=== PATIENT | female | born 2000 | race African-American/Black ===

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

== ENCOUNTER 2021-06-06 21:49 | Emergency (ER) | payer OTHER ==
[2021-06-06 22:03] VITALS: BP 99/68; PULSE 87; TEMP 98; BMI 47.5
[2021-06-06 23:36] LABS: BASO % 0.5 % (0-2.0); EOS % 1.2 % (0-4.5); HEMATOCRIT 34.6 % (32.4-45.2); HEMOGLOBIN 11.4 GM/dL (10.7-15.3); MCH 25.5 pg (25.7-33.7); MCHC 33.1 g/dl (32.0-36.0); MEAN CELL VOLUME 77.2 fl (80-96); MEAN PLT VOLUME 8.3 fl (7.5-11.1); MONO % 6.3 % (3.8-10.2); PLATELET COUNT 256 10^3/uL (134-434); RBC 4.48 M/mm3 (3.60-5.2); RDW 15.6 % (11.6-15.6); WHITE BLOOD COUNT 5.2 K/mm3 (4.0-10.0)
[2021-06-06 23:57] LABS: BLOOD UREA NITROGEN 12.1 mg/dL (7-18)
[2021-06-07] LABS: CREATININE 0.9 mg/dL (0.55-1.3)
[2021-06-07 00:02] LABS: BILIRUBIN,TOTAL 0.2 mg/dL (0.2-1); TOT PROT 7.2 g/dl (6.4-8.2)
[2021-06-07 00:43] LABS: EPI CELLS >36 /uL (0-25.1); HYALINE CASTS 1 /uL (0-3.1); URINE APPEARANCE CLEAR; URINE BACTERIA 729 /uL (0-1359); URINE BILIRUBIN NEGATIVE (NEGATIVE); URINE COLOR YELLOW; URINE GLUCOSE (UA) NEGATIVE (NEGATIVE); URINE KETONE TRACE (NEGATIVE); URINE LEUK ESTERASE TRACE (NEGATIVE); URINE NITRITE NEGATIVE (NEGATIVE); URINE PROTEIN TRACE (NEGATIVE); URINE RBC 467 /uL (0-23.9); URINE WBC 46 /uL (0-25.8)
[2021-06-07 00:51] LABS: HCG,QUALITATIVE URINE Negative
== END 2021-06-07 03:01 | disposition home or self-care (01) ==
LOC: JER 21:49
DX: N93.9 Abnormal uterine and vaginal bleeding, unspecified (principal)
CPT/HCPCS: 36415; 76830-TC; 80053; 81003; 84703; 85025; 87086; 87491; 87591; 99284-25

== ENCOUNTER 2023-05-24 02:24 | Emergency (ER) | payer OTHER ==
[2023-05-24 02:30] VITALS: BMI 47.8
[2023-05-24] MEDS ORDERED: SODIUM CHLORIDE 0.9% 500 ML INFUS.BAG IV ONE (04:11)
[2023-05-24] MEDS ORDERED: ONDANSETRON 4 MG/2 ML VIAL IVPUSH ONE (04:16)
[2023-05-24] MEDS ORDERED: ONDANSETRON 4 MG/2 ML VIAL ONE (04:28)
[2023-05-24 04:55] LABS: BASO % 0.6 % (0-2.0); EOS % 0.3 % (0-4.5); HEMOGLOBIN 12.5 GM/dL (10.7-15.3); LYMPH % 25.1 % (8-40); MCHC 32.8 g/dl (32.0-36.0); MEAN CELL VOLUME 76.2 fl (80-96); MEAN PLT VOLUME 8.7 fl (7.5-11.1); MONO % 6.4 % (3.8-10.2); NEUT % 67.6 % (42.8-82.8); PLATELET COUNT 297 10^3/uL (134-434); RBC 4.98 M/mm3 (3.60-5.2); RDW 18.1 % (11.6-15.6); WHITE BLOOD COUNT 5.8 K/mm3 (4.0-10.0)
[2023-05-24 04:57] LABS: EPI CELLS >36 /uL (0-25.1); HYALINE CASTS 7 /uL (0-3.1); PH,URINE 6.5 (5.0-8.0); URINE APPEARANCE TURBID; URINE BACTERIA >9,000 /uL (0-1359); URINE BILIRUBIN 2+ (NEGATIVE); URINE COLOR DK YELLOW; URINE GLUCOSE (UA) NEGATIVE (NEGATIVE); URINE KETONE 4+ (NEGATIVE); URINE LEUK ESTERASE 3+ (NEGATIVE); URINE NITRITE POSITIVE (NEGATIVE); URINE PROTEIN 2+ (NEGATIVE); URINE WBC 1459 /uL (0-25.8)
[2023-05-24] MEDS ORDERED: CEFTRIAXONE 1 GM in DEXTROSE 5%-WATER - 50 ML IVPB ONE (05:01)
[2023-05-24] MEDS ORDERED: SODIUM CHLORIDE 1,000 ML IV STA (05:06)
[2023-05-24 05:12] LABS: POTASSIUM 4.1 mmol/L (3.5-5.1)
[2023-05-24 05:13] LABS: CALCIUM 9.3 mg/dL (8.5-10.1)
[2023-05-24 05:14] LABS: ALBUMIN 3.4 g/dl (3.4-5.0)
[2023-05-24 05:17] LABS: CREATININE 0.7 mg/dL (0.55-1.3)
[2023-05-24 05:19] LABS: BILIRUBIN,TOTAL 0.8 mg/dL (0.2-1); TOT PROT 7.6 g/dl (6.4-8.2)
[2023-05-24 05:26] VITALS: BP 97/62; PULSE 76; RESP 18; TEMP 97.9
[2023-05-24] MEDS ORDERED: CEFTRIAXONE 1 GM/50 ML BAG ONE (05:29)
[2023-05-24 06:02] LABS: URINE CRYSTALS MODERATE /hpf
== END 2023-05-24 06:52 | disposition home or self-care (01) ==
LOC: JER 02:24
PROC: 3E03329 Introduction of Other Anti-infective into Peripheral Vein, Percutaneous Approach (ICD-10-PCS; principal; 2023-05-24)
PROC: 3E033GC Introduction of Other Therapeutic Substance into Peripheral Vein, Percutaneous Approach (ICD-10-PCS; 2023-05-24)
PROC: 3E0337Z Introduction of Electrolytic and Water Balance Substance into Peripheral Vein, Percutaneous Approach (ICD-10-PCS; 2023-05-24)
DX: O21.0 Mild hyperemesis gravidarum (principal); O26.891 Other specified pregnancy related conditions, first trimester; R11.0 Nausea; R10.9 Unspecified abdominal pain; R30.0 Dysuria; Z3A.00 Weeks of gestation of pregnancy not specified
CPT/HCPCS: 36415; 80053; 81003; 84702; 85025; 87086; 93005; 93010; 99284-25

== ENCOUNTER 2023-06-05 04:11 | Emergency (ER) | payer OTHER ==
[2023-06-05 04:16] VITALS: TEMP 97.5; BMI 48.6
[2023-06-05] MEDS ORDERED: ACETAMINOPHEN 1000 MG/100 ML BAG IVPB ONE (04:51)
[2023-06-05] MEDS ORDERED: ACETAMINOPHEN INJECTION 100 ML IVPB ONE (05:08)
[2023-06-05 05:41] LABS: BASO % 0.3 % (0-2.0); EOS % 0.1 % (0-4.5); HEMATOCRIT 39.6 % (32.4-45.2); HEMOGLOBIN 13.2 GM/dL (10.7-15.3); LYMPH % 23.7 % (8-40); MCH 25.5 pg (25.7-33.7); MCHC 33.2 g/dl (32.0-36.0); MEAN CELL VOLUME 76.7 fl (80-96); MEAN PLT VOLUME 9.1 fl (7.5-11.1); MONO % 7.6 % (3.8-10.2); NEUT % 68.3 % (42.8-82.8); PLATELET COUNT 261 10^3/uL (134-434); RBC 5.17 M/mm3 (3.60-5.2); RDW 17.3 % (11.6-15.6); WHITE BLOOD COUNT 4.1 K/mm3 (4.0-10.0)
[2023-06-05 06:02] LABS: POTASSIUM 3.7 mmol/L (3.5-5.1)
[2023-06-05 06:04] LABS: CALCIUM 9.3 mg/dL (8.5-10.1)
[2023-06-05 06:05] LABS: ALBUMIN 3.3 g/dl (3.4-5.0); BLOOD UREA NITROGEN 7.3 mg/dL (7-18)
[2023-06-05 06:08] LABS: CREATININE 0.7 mg/dL (0.55-1.3)
[2023-06-05 06:09] LABS: BILIRUBIN,TOTAL 0.9 mg/dL (0.2-1)
[2023-06-05 06:10] LABS: TOT PROT 7.7 g/dl (6.4-8.2)
[2023-06-05 06:44] LABS: EPI CELLS >36 /uL (0-25.1); HCG,QUALITATIVE URINE Positive; HYALINE CASTS 17 /uL (0-3.1); URINE APPEARANCE CLOUDY; URINE BILIRUBIN 2+ (NEGATIVE); URINE COLOR DK YELLOW; URINE GLUCOSE (UA) NEGATIVE (NEGATIVE); URINE KETONE 4+ (NEGATIVE); URINE LEUK ESTERASE 2+ (NEGATIVE); URINE NITRITE POSITIVE (NEGATIVE); URINE PROTEIN 1+ (NEGATIVE); URINE RBC 30 /uL (0-23.9); URINE WBC 334 /uL (0-25.8)
[2023-06-05] MEDS ORDERED: SODIUM CHLORIDE 1,000 ML IV STA (06:48)
[2023-06-05 08:46] LABS: URINE BACTERIA 719 /uL (0-1359)
[2023-06-05 08:47] LABS: YEAST NONE SEEN (NEGATIVE)
[2023-06-05] MEDS ORDERED: CEFTRIAXONE 1 GM/50 ML BAG ONE (09:05)
[2023-06-05] MEDS ORDERED: ONDANSETRON 4 MG/2 ML VIAL IVPUSH ONE (09:42)
[2023-06-05] MEDS ORDERED: ONDANSETRON 4 MG/2 ML VIAL ONE (09:57)
[2023-06-05 11:06] VITALS: BP 110/66; PULSE 56; RESP 18
== END 2023-06-05 11:55 | disposition home or self-care (01) ==
LOC: JER 04:11
PROC: 3E033NZ Introduction of Analgesics, Hypnotics, Sedatives into Peripheral Vein, Percutaneous Approach (ICD-10-PCS; principal; 2023-06-05)
PROC: 3E03329 Introduction of Other Anti-infective into Peripheral Vein, Percutaneous Approach (ICD-10-PCS; 2023-06-05)
PROC: 3E033GC Introduction of Other Therapeutic Substance into Peripheral Vein, Percutaneous Approach (ICD-10-PCS; 2023-06-05)
PROC: 3E0337Z Introduction of Electrolytic and Water Balance Substance into Peripheral Vein, Percutaneous Approach (ICD-10-PCS; 2023-06-05)
DX: O26.891 Other specified pregnancy related conditions, first trimester (principal); R10.30 Lower abdominal pain, unspecified; R10.2 Pelvic and perineal pain; O23.41 Unspecified infection of urinary tract in pregnancy, first trimester; O30.001 Twin pregnancy, unspecified number of placenta and unspecified number of amniotic sacs, first trimester; Z3A.10 10 weeks gestation of pregnancy
CPT/HCPCS: 36415; 76705-TC; 76810-TC; 80053; 80307; 81003; 84702; 84703; 85025; 86850; 86900; 86901; 87086; 99284-25

== ENCOUNTER 2024-03-01 00:26 | Emergency (ER) | payer OTHER ==
[2024-03-01 00:35] VITALS: BP 116/82; PULSE 71; RESP 18; TEMP 97.6; BMI 44.2
== END 2024-03-01 02:27 | disposition home or self-care (01) ==
LOC: JER 00:26
DX: S80.212A Abrasion, left knee, initial encounter (principal); W01.198A Fall on same level from slipping, tripping and stumbling with subsequent striking against other object, initial encounter
CPT/HCPCS: 73564-TC-LT-FY; 73590-TC-LT-FY; 73610-TC-LT-FY; 84703; 99283-25